=== PATIENT | female | born 1960 | race Caucasian/White ===

== ENCOUNTER → 2016-12-27 | Outpatient (CLI) | payer OTHER ==
[2016-12-27 18:08] LABS: ANION GAP 7 MEQ/L (8-16); BLOOD UREA NITROGEN 23 MG/DL (7-18); CALCIUM LEVEL 8.7 MG/DL (8.5-10.1); CARBON DIOXIDE LEVEL 34 MEQ/L (21-32); CHLORIDE LEVEL 103 MEQ/L (98-107); CREATININE FOR GFR 0.91 MG/DL (0.55-1.02); GLOMERULAR FILTRATION RATE > 60.0 (>51); GLUCOSE, FASTING 80 MG/DL (70-105); SODIUM LEVEL 144 MEQ/L (136-145)
== END ==
LOC: M SMT 15:07
PROVIDERS: ATTEND Internal Medicine Cardiovascular Disease
DX: R00.2 Palpitations (principal); R42 Dizziness and giddiness; R07.9 Chest pain, unspecified

== ENCOUNTER → 2017-04-04 | Outpatient (REF) | payer OTHER | LOC: M LAB REF 17:10 | PROVIDERS: ATTEND Internal Medicine | DX: M15.9 Polyosteoarthritis, unspecified (principal) ==

== ENCOUNTER → 2017-05-16 | Outpatient (CLI) | payer OTHER ==
[~2017-05-16] MED LIST: ASPI81TA85 PO; ATOR40TA75 PO; CALC600T60 PO; CLOP75TA2 PO; KETO10TAB PO; LEVO50TA5 PO; LEXA1TAB PO; LOSA100T5 PO; METO37.5 PO; OMEP40CA2 PO; VITA200015 PO
--- NOTE | 2017-05-21 08:43 | SLEEPCENT ---
DATE OF PROCEDURE: 05/16/2017 REQUESTING PROVIDER: Ashley Neves NP INTERPRETATION: Nocturnal polysomnography was performed for evaluation of sleep apnea syndrome symptoms in this patient with a history of impaired cognition, excessive somnolence, snoring, and nonrestorative sleep. 8 hours and 39 minutes of data were reviewed. There were 407 minutes of sleep identified. Sleep latency was prolonged at 57 minutes. Rapid eye movement (REM) latency was prolonged at 294 minutes. Sleep architecture showed poor progression. There were eventually two REM periods appreciated. Overall sleep efficiency was 79%. The patient's electrocardiogram (EKG) showed a sinus rhythm with an average heart rate of 62 beats per minute. Electroencephalogram (EEG) showed normal waveforms for awake and sleep. There were 203 respiratory events identified of 10 seconds in duration or greater for an apnea-hypopnea index of 29.9. The events were primarily obstructive though central events were seen as well. Events were not exclusive to sleep stage, nor body posture. Arousals from respiratory events occurred 11.9 times per hour. Oxygen desaturations were seen into the low 80s. There was also some limb activity. Limb movement arousal index was borderline at 5.4. IMPRESSION: Severe obstructive sleep apnea syndrome (G47.33). Apnea-hypopnea index of 29.9. RECOMMENDATIONS: The patient should be encouraged to return to the sleep disorder center for pressure therapy. In the interim, alcohol and sedative avoidance should be practiced and caution exercised during the operation of motor vehicles.
== END ==
LOC: M SLEEP 19:49
PROVIDERS: ATTEND Nurse Practitioner Adult Health
DX: G47.33 Obstructive sleep apnea (adult) (pediatric) (principal)

== ENCOUNTER → 2017-06-10 | Outpatient (CLI) | payer OTHER ==
--- NOTE | 2017-06-16 08:25 | SLEEPCENT ---
DATE OF PROCEDURE: 06/10/2017 REFERRING PROVIDER: Dr. Alaina Johnson. INTERPRETATION: Nocturnal polysomnography was performed for the titration of pressure therapy in this patient with obstructive sleep apnea syndrome. Apnea/hypopnea index of 29. For testing the patient was fit with a ResMed Air Touch F20 full-face mask of medium size, 4 cm of water pressure were applied to the circuit and the lights were extinguished. 6 hours and 41 minutes of data were reviewed. There were 304 minutes of sleep identified. Sleep latency was prolonged at 33 minutes. REM latency was prolonged to 198 minutes. Sleep architecture improved substantially with optimum pressure therapy. There is evidence of REM rebound late in the study. Overall sleep efficiency was 76.9%. The patient's EKG showed a sinus rhythm with an average heart rate of 58 beats per minute. EEG showed normal waveforms for awake and sleep stages. Respiratory events were fully palliated with CPAP to a pressure of +13. CPAP tolerance was good. The remaining measures of sleep physiology were essentially normal, though some limb activity was seen, arousals occurred 8.9 times per hour on this titration. . IMPRESSION: Obstructive sleep apnea syndrome (G47.33). RECOMMENDATION: Nightly use of pressure therapy at 13 cm of water.
== END ==
LOC: M SLEEP 19:41
PROVIDERS: ATTEND Nurse Practitioner Adult Health
DX: G47.33 Obstructive sleep apnea (adult) (pediatric) (principal)

== ENCOUNTER 2017-06-14 19:55 | Emergency (ER) | payer OTHER ==
[~2017-06-14] VITALS: Ht 170.2 cm; Wt 113.6 kg
[2017-06-14] MEDS ORDERED: ATOR40TA75 PO (20:18)
[2017-06-14] MEDS ORDERED: LEXA1TAB PO (20:18)
[2017-06-14] MEDS ORDERED: VITA200015 PO (20:18)
[2017-06-14] MEDS ORDERED: CLOP75TA2 PO (20:18)
[2017-06-14] MEDS ORDERED: LEVO50TA5 PO (20:18)
[2017-06-14] MEDS ORDERED: CALC600T60 PO (20:18)
[2017-06-14] MEDS ORDERED: OMEP40CA2 PO (20:18)
[2017-06-14] MEDS ORDERED: LOSA100T5 PO (20:18)
[2017-06-14] MEDS ORDERED: ASPI81TA85 PO (20:18)
[2017-06-14] MEDS ORDERED: METO37.5 PO (20:18)
[2017-06-14 23:03] LABS: ABG BASE EXCESS 0.8 (-2.0-2.0); ABG HCO3 24.4 MEQ/L (22.0-26.0); ABG PARTIAL PRESSURE CO2 35.9 mmHg (35.0-45.0); ABG PARTIAL PRESSURE O2 102.5 mmHg (75.0-100.0); ABG STANDARD HCO3 25.2 MEQ/L (22.0-26.0); ABG TOTAL CO2 25.5 MEQ/L (22.0-29.0); ABG pH (ARTERIAL) 7.451 UNITS (7.350-7.450)
[2017-06-14] MEDS ORDERED: KETOROLAC 30 MG/ML VIAL (J1885) IV ONE (23:15)
[2017-06-15 00:19] LABS: BASO % 0.7 % (0.0-1.0); EOS # 0.1 K/mm3 (0.0-0.50); EOS % 1.9 % (0.0-3.0); LARGE UNSTAINED CELL # 0.1 K/mm3 (0.0-0.4); LARGE UNSTAINED CELL % 2.4 % (0.0-4.0); LYMPH # 2.4 K/mm3 (1.5-4.5); LYMPH % 39.6 % (24.0-44.0); MEAN CORPUSCULAR HGB CONC 33.4 g/dl (32.0-36.5); MEAN CORPUSCULAR VOLUME 92.8 fl (80.0-96.0); MONO # 0.4 K/mm3 (0.0-0.8); MONO % 6.2 % (0.0-5.0); NEUTROPHILS % 49.2 % (36.0-66.0); PLATELET COUNT, AUTOMATED 212 k/mm3 (150-450); RED CELL DISTRIBUTION WIDTH 12.3 % (11.5-14.5)
[2017-06-15 01:07] LABS: ALBUMIN 3.7 GM/DL (3.2-5.2); ALBUMIN/GLOBULIN RATIO 1.28 (1.00-1.93); ALKALINE PHOSPHATASE 116 U/L (45-117); ALT/SGPT 23 U/L (12-78); AMYLASE 53 U/L (25-115); ANION GAP 8 MEQ/L (8-16); AST/SGOT 17 U/L (15-37); BILIRUBIN,DIRECT < 0.1 MG/DL (0.0-0.2); BILIRUBIN,TOTAL 0.2 MG/DL (0.2-1.0); BLOOD UREA NITROGEN 17 MG/DL (7-18); CALCIUM LEVEL 8.7 MG/DL (8.5-10.1); CARBON DIOXIDE LEVEL 30 MEQ/L (21-32); CHLORIDE LEVEL 105 MEQ/L (98-107); CREATININE FOR GFR 0.99 MG/DL (0.55-1.02); GLOMERULAR FILTRATION RATE > 60.0 (>51); GLUCOSE, FASTING 120 MG/DL (70-105); POTASSIUM SERUM 3.6 MEQ/L (3.5-5.1); SODIUM LEVEL 143 MEQ/L (136-145); TOTAL PROTEIN 6.6 GM/DL (6.4-8.2)
[2017-06-15] MEDS ORDERED: ISOVUE-370 76% 100ML VIAL (Q9967) As Ordered ONE (01:26)
--- NOTE | 2017-06-15 02:20 | REPUSA ---
CLINICAL HISTORY: Dyspnea, exclude PE. TECHNIQUE: Multiple incremental axial, coronal and oblique images are obtained from the thoracic inle t to the upper abdomen. Intravenous contrast material was administered as per pulmonary embolism prot ocol. COMMENTS: Comparison to the prior exam on 07/28/2016. Unchanged cardiomegaly. Unchanged basilar atelectatic pulmonary changes. There is excellent opacification of pulmonary arterial system without evidence for pulmonary embolism . Aorta is of normal caliber without evidence for dissection or aneurysm. There is no evidence of pleural or parenchymal mass. There are no pleural effusions. There is no evid ence of hilar or mediastinal lymphadenopathy. Images of the upper abdomen demonstrate no evidence of adrenal mass. The bony structures are free of lytic or blastic lesions. IMPRESSION: No evidence for pulmonary embolism. Unchanged cardiomegaly. Unchanged basilar atelectatic pulmonary changes. Thank you for your kind referral of this patient.
[2017-06-15] MEDS ORDERED: KETO10TAB PO (02:34)
[2017-06-15 03:08] VITALS: BP 156/78
--- NOTE | 2017-06-15 08:50 | REP ---
Clinical: Rib and pleuritic chest pain . Comparison: 07/27/2016 . Technique: PA and lateral. Findings: The mediastinum and cardiac silhouette are normal. The lung martin are clear and without acute consolidation, effusion, or pneumothorax. The skeletal structures are intact and normal. Impression: 1. No acute cardiopulmonary process. Signed by Yosef Mccarthy MD 06/15/2017 08:42 A
== END 2017-06-15 03:09 | disposition home or self-care (01) ==
LOC: M ED 19:55
DX: R07.81 Pleurodynia (principal); I25.10 Atherosclerotic heart disease of native coronary artery without angina pectoris; I10 Essential (primary) hypertension; E78.5 Hyperlipidemia, unspecified; K21.9 Gastro-esophageal reflux disease without esophagitis; E03.9 Hypothyroidism, unspecified; Z95.5 Presence of coronary angioplasty implant and graft; Z87.891 Personal history of nicotine dependence; Z79.82 Long term (current) use of aspirin; Z79.899 Other long term (current) drug therapy
CPT/HCPCS: 36600; 71020; 71275; 80048; 80076; 82150; 82550; 82553; 82803; 83690; 85025; 96374; 99283; J1885; Q9967

== ENCOUNTER → 2017-12-09 | Outpatient (REF) | payer OTHER ==
[2017-12-09 12:45] LABS: CPK CREATINE PHOSPHOKINASE 163 U/L (26-192); MB/CK RELATIVE INDEX 0.61 (< OR =4); TROPONIN I < 0.02 NG/ML (< 0.10)
== END ==
LOC: M LAB REF 11:48
DX: R07.89 Other chest pain (principal)
CPT/HCPCS: 82550

== ENCOUNTER 2018-02-23 14:14 | Emergency (ER) | payer OTHER ==
[2018-02-23] MEDS: NS 1,000 ML IV (15:53)
[2018-02-23] MEDS: ASPIRIN 81 MG CHEW TABLET PO (15:53)
[2018-02-23 15:54] LABS: BASO % 0.6 % (0.0-1.0); EOS # 0.1 10^3/uL (0.0-0.50); EOS % 2.1 % (0.0-3.0); HEMATOCRIT 39.3 % (36.0-47.0); HEMOGLOBIN 12.9 g/dl (12.0-15.5); IMMATURE GRANULOCYTE % 0.6 % (0-3.0); LYMPH # 2.8 10^3/uL (1.5-4.5); LYMPH % 41.4 % (24.0-44.0); MEAN CORPUSCULAR HEMOGLOBIN 30.1 pg (27.0-33.0); MEAN CORPUSCULAR HGB CONC 32.8 g/dl (32.0-36.5); MEAN CORPUSCULAR VOLUME 91.8 fl (80.0-96.0); MONO # 0.5 10^3/uL (0.0-0.8); MONO % 7.8 % (0.0-5.0); NEUTROPHILS # 3.2 10^3/uL (1.8-7.7); NEUTROPHILS % 47.5 % (36.0-66.0); PLATELET COUNT, AUTOMATED 219 10^3/uL (150-450); RED BLOOD COUNT 4.28 10^6/uL (4.00-5.40); RED CELL DISTRIBUTION WIDTH 12.6 % (11.5-14.5); WHITE BLOOD COUNT 6.6 10^3/uL (4.0-10.0)
[2018-02-23 15:56] LABS: PROTHROMBIN TIME 12.2 SECONDS (12.4-14.5)
[2018-02-23 16:09] LABS: ALBUMIN/GLOBULIN RATIO 1.25 (1.00-1.93); ALKALINE PHOSPHATASE 114 U/L (45-117); ALT/SGPT 39 U/L (12-78); ANION GAP 5 MEQ/L (8-16); AST/SGOT 27 U/L (7-37); BILIRUBIN,DIRECT 0.2 MG/DL (0.0-0.2); BILIRUBIN,TOTAL 0.5 MG/DL (0.2-1.0); BLOOD UREA NITROGEN 11 MG/DL (7-18); CARBON DIOXIDE LEVEL 32 MEQ/L (21-32); CHLORIDE LEVEL 106 MEQ/L (98-107); CK-MB VALUE MASS 1.5 NG/ML (<3.6); CPK CREATINE PHOSPHOKINASE 196 U/L (26-192); CREATININE FOR GFR 0.84 MG/DL (0.55-1.30); GLOMERULAR FILTRATION RATE > 60.0 (>51); GLUCOSE, FASTING 104 MG/DL (70-100); MB/CK RELATIVE INDEX 0.76 (< OR =4); NT-PRO BNP 144 PG/ML (<125); POTASSIUM SERUM 3.6 MEQ/L (3.5-5.1); SODIUM LEVEL 143 MEQ/L (136-145); TOTAL PROTEIN 7.2 GM/DL (6.4-8.2); TROPONIN I < 0.02 NG/ML (< 0.10)
== END 2018-02-23 16:53 | disposition home or self-care (01) ==
LOC: M ED 14:14
DX: I20.8 Other forms of angina pectoris (principal); E78.5 Hyperlipidemia, unspecified; K21.9 Gastro-esophageal reflux disease without esophagitis; Z79.899 Other long term (current) drug therapy; Z79.82 Long term (current) use of aspirin
CPT/HCPCS: 71045

== ENCOUNTER 2019-06-11 12:46 | Outpatient (RCR) | payer OTHER ==
[~2019-06-11 12:46] MED LIST changes: +ISOS60TA2 PO
== END 2019-06-12 ==
LOC: M PT 12:46
PROVIDERS: ATTEND Orthopaedic Surgery
DX: Z47.89 Encounter for other orthopedic aftercare (principal); M54.5 Low back pain

== ENCOUNTER 2019-06-30 07:49 | Outpatient (RCR) | payer OTHER ==
[2019-07-02] MEDS ORDERED: COLC1TAB14 PO (13:45)
[2019-07-02] MEDS ORDERED: NITR0.4S14 SL (13:45)
[2019-07-02] MEDS ORDERED: FURO20TA2 PO (13:45)
[2019-07-02] MEDS ORDERED: B COTAB3 PO (13:45)
== END 2019-07-12 ==
LOC: M PT 07:49
PROVIDERS: ATTEND Orthopaedic Surgery
DX: Z47.89 Encounter for other orthopedic aftercare (principal); M54.5 Low back pain

== ENCOUNTER 2019-07-16 07:41 | Day surgery (SDC) | payer OTHER ==
[~2019-07-16] VITALS: Ht 165.1 cm; Wt 116.1 kg
[~2019-07-16 07:41] MED LIST changes: +B COTAB3 PO; +COLC1TAB14 PO; +FURO20TA2 PO; +KETOROLAC 60 MG/2 ML VIAL (J1885) As Ordered ONE; +LIDOCAINE 1% MDV 20ML VIAL SQ PRN; +LIDOCAINE 2% INJ 100 MG/5 ML SDV (FOR ANES.) As Ordered ONE; +LR 1,000 ML IV ONE; +NITR0.4S14 SL; +ONDANSETRON 4MG/2ML VIAL (J2405) As Ordered ONE; +PROPOFOL 200 MG/20 ML VIAL As Ordered ONE; +ceFAZolin SOD 2 GM in IV 1 EA IV ONE; +dexameTHASONE 4 MG/ML 1ML VIAL (J1100) As Ordered ONE
[2019-07-16] MEDS ORDERED: PROPOFOL 200 MG/20 ML VIAL As Ordered ONE (07:49)
[2019-07-16] MEDS ORDERED: MIDAZOLAM INJ 2 MG/2 ML VIAL (J2250) As Ordered ONE (07:57)
[2019-07-16] MEDS ORDERED: fentaNYL 100 MCG/2 ML INJECTION (J3010) As Ordered ONE (07:58)
[2019-07-16] MEDS ORDERED: ROPIvacaine 0.5% 30 ML INJECTION (J2795 PER 1MG) As Ordered ONE (08:28)
[2019-07-16] MEDS ORDERED: LIDOCAINE 2% MDV 20 ML VIAL As Ordered ONE (08:28)
[2019-07-16] MEDS ORDERED: BUPIVACAINE HCL 0.5% 30 ML VIAL As Ordered ONE (08:28)
[2019-07-16] MEDS ORDERED: BACITRACIN PWD 50,000 UNITS VIAL As Ordered ONE (08:28)
[2019-07-16] MEDS ORDERED: NEOSPORIN GU IRRIG 20 ML VIAL As Ordered ONE (08:28)
[2019-07-16] MEDS ORDERED: dexameTHASONE 4 MG/ML 1ML VIAL (J1100) As Ordered ONE ×2 (08:28→09:59)
[2019-07-16] MEDS ORDERED: ePHEDrine SULFATE 25 MG/5 ML(5MG/ML) SYRINGE As Ordered ONE (09:42)
[2019-07-16 11:10] VITALS: BP 157/72
--- NOTE | 2019-07-16 11:31 | RO ---
DATE OF PROCEDURE: 07/16/2019 PREPROCEDURE DIAGNOSIS: Neuroma third intermetatarsal space right foot. POSTPROCEDURE DIAGNOSIS: Neuroma third intermetatarsal space right foot. PROCEDURE: Excision of neuroma third intermetatarsal space right foot. SURGEON: Roverto Mast DPM HOD CARRIER: None ANESTHESIA: Local, monitored anesthesia care (MAC). IRRIGATION: Dilute bacitracin, neomycin and polymyxin B solution. HEMOSTASIS: Ankle pneumatic tourniquet at 200 mmHg for 21 minutes. DESCRIPTION OF PROCEDURE: On 07/16/2019, this 58-year-old white female was taken from her hospital room to the operating room and placed on the operating room table in a supine position. Following the induction of IV sedation, local and regional anesthesia, the right lower extremity was prepped and draped in the usual aseptic manner. The ankle pneumatic tourniquet was rapidly inflated. The right lower extremity was returned to the operating room table and the following procedure was performed. EXCISION OF NEUROMA THIRD INTERMETATARSAL SPACE RIGHT FOOT: Attention was directed to the patients right foot where there was noted to be a positive Zackery's sign in the intermetatarsal space of the right foot. At this time, a 4 cm incision was placed over the third intermetatarsal space ending at the toe sulcus between the third and fourth toes. The incision was deepened through subcutaneous tissues and all coursing venous tributaries were identified, underscored, clamped, cut, ligated, and electrocoagulated as necessary. Dissection was carried down in the same plane and all vital neurovascular structures were retracted medially and laterally and dissection was carried down to the level of the deep transverse intermetatarsal ligament which was transected. Plantar pressure then exposed a moderate sized neuroma which was then traced distally into its common digital branches and transected and then traced in a proximal direction to proximal to the distal one third of the neck of the fourth metatarsal where it was transected and extirpated from the wound. The wound was flushed with copious amounts of dilute bacitracin, neomycin and polymyxin B solution. Attention was directed towards closure where the subcutaneous tissues were coapted and maintained utilizing #4-0 Monocryl in a simple interrupted type fashion. Skin incision was coapted and maintained utilizing #5-0 Monocryl in a continuous subcuticular type fashion. This was additionally reinforced with Steri-Strips. Following the completion of the surgical procedure, 4 mg of dexamethasone sodium phosphate was instilled proximal to the surgical site. Attention was directed towards bandaging where a sterile compressive bandage was applied consisting of Adaptic, 4x4s, 4x4 splints, Rosaura, Kerlix and Coban. The ankle pneumatic tourniquet was rapidly deflated and instantaneous capillary filling time was noted in digits 1-5 of the patients right foot. The patient having apparently tolerated the surgical procedure well was taken from the OR to the recovery room for further monitoring by the anesthesia department. Postoperative instructions will be given upon discharge. AMILCAR
== END 2019-07-16 11:30 | disposition home or self-care (01) ==
LOC: M SDC 07:41
PROVIDERS: ATTEND Podiatrist
DX: G57.61 Lesion of plantar nerve, right lower limb (principal); I10 Essential (primary) hypertension; E78.5 Hyperlipidemia, unspecified; E03.9 Hypothyroidism, unspecified; K21.9 Gastro-esophageal reflux disease without esophagitis; Z79.02 Long term (current) use of antithrombotics/antiplatelets; Z98.61 Coronary angioplasty status; Z79.82 Long term (current) use of aspirin; G47.30 Sleep apnea, unspecified; Z79.899 Other long term (current) drug therapy
CPT/HCPCS: 28080; 88304; 97116; J0690; J1100; J1885; J2250; J2405; J3010

== ENCOUNTER → 2021-11-05 | Outpatient (REF) | payer OTHER ==
[~2021-11-05] MED LIST changes: -ASPI81TA85 PO; +ASPI81TA86 PO; +ISOS1TAB36 PO; -ISOS60TA2 PO; -KETOROLAC 60 MG/2 ML VIAL (J1885) As Ordered ONE; -LIDOCAINE 1% MDV 20ML VIAL SQ PRN; -LIDOCAINE 2% INJ 100 MG/5 ML SDV (FOR ANES.) As Ordered ONE; -LR 1,000 ML IV ONE; -OMEP40CA2 PO; +OMEP40CA4 PO; -ONDANSETRON 4MG/2ML VIAL (J2405) As Ordered ONE; -PROPOFOL 200 MG/20 ML VIAL As Ordered ONE; -ceFAZolin SOD 2 GM in IV 1 EA IV ONE; -dexameTHASONE 4 MG/ML 1ML VIAL (J1100) As Ordered ONE
[2021-11-05 14:49] LABS: MALB URINE SIEMENS 11.7 MG/L; MAU/CREAT RATIO 3.8 MCG/MG (0.0-30.0)
== END ==
LOC: M LAB REF 12:19
PROVIDERS: ATTEND Internal Medicine
DX: E11.65 Type 2 diabetes mellitus with hyperglycemia (principal)

== ENCOUNTER → 2022-05-31 | Outpatient (CLI) | payer OTHER | LOC: M WHC 07:26 | PROVIDERS: ATTEND Advanced Practice Midwife | DX: Z12.31 Encounter for screening mammogram for malignant neoplasm of breast (principal); Z13.820 Encounter for screening for osteoporosis; M85.89 Other specified disorders of bone density and structure, multiple sites ==

== ENCOUNTER → 2022-07-11 | Outpatient (REF) | payer OTHER ==
[2022-07-11 13:35] LABS: C REACTIVE PROTEIN QUANTITATIV < 0.30 MG/DL (0.00-0.30); RHEUMATOID FACTOR QUANT < 10.0 IU/ML (<15.0)
[2022-07-13 00:11] LABS: ANTINUCLEAR ANTIBODIES DIRECT Negative (Negative); CYCLIC CITRULLINATED PEPTIDE < 1 units (0-19)
== END ==
LOC: M LAB REF 12:12
PROVIDERS: ATTEND Internal Medicine
DX: M15.9 Polyosteoarthritis, unspecified (principal)

== ENCOUNTER → 2023-06-02 | Outpatient (CLI) | payer OTHER | LOC: M WHC 08:03 | PROVIDERS: ATTEND Obstetrics & Gynecology | DX: Z12.31 Encounter for screening mammogram for malignant neoplasm of breast (principal) ==

== ENCOUNTER → 2023-10-10 | Outpatient (CLI) | payer OTHER | LOC: M SLEEP HO 10:28 | PROVIDERS: ATTEND Internal Medicine Pulmonary Disease | DX: G47.33 Obstructive sleep apnea (adult) (pediatric) (principal) ==

== ENCOUNTER → 2024-03-22 | Outpatient (REF) | payer OTHER ==
[2024-03-22 14:38] LABS: C REACTIVE PROTEIN QUANTITATIV < 0.40 MG/DL (<1.0)
[2024-03-22 14:39] LABS: RHEUMATOID FACTOR QUANT < 3.5 IU/ML (<14)
[2024-03-22 14:42] LABS: URIC ACID 3.1 MG/DL (3.1-7.8)
[2024-03-23 16:08] LABS: ANA SCREEN, IFA NEGATIVE (NEGATIVE)
== END ==
LOC: M LAB REF 12:28
PROVIDERS: ATTEND Internal Medicine
DX: M79.643 Pain in unspecified hand (principal)

== ENCOUNTER → 2024-05-25 | Outpatient (CLI) | payer OTHER | LOC: M WUC 08:45 | PROVIDERS: ATTEND Physician Assistant | DX: S20.212A Contusion of left front wall of thorax, initial encounter (principal); X58.XXXA Exposure to other specified factors, initial encounter; Y92.9 Unspecified place or not applicable ==

== ENCOUNTER → 2024-06-18 | Outpatient (CLI) | payer OTHER | LOC: M WHC 08:19 | PROVIDERS: ATTEND Obstetrics & Gynecology | DX: Z12.31 Encounter for screening mammogram for malignant neoplasm of breast (principal); Z13.820 Encounter for screening for osteoporosis; M85.89 Other specified disorders of bone density and structure, multiple sites; R92.313 Mammographic fatty tissue density, bilateral breasts ==

== ENCOUNTER → 2025-06-09 | Outpatient (REF) | payer MEDICARE, OTHER | LOC: M LAB REF 17:21 | PROVIDERS: ATTEND Internal Medicine | DX: R11.0 Nausea (principal); R19.4 Change in bowel habit ==

== ENCOUNTER → 2025-06-28 | Outpatient (CLI) | payer MEDICARE | LOC: M WHC 07:39 | PROVIDERS: ATTEND Obstetrics & Gynecology | DX: Z12.31 Encounter for screening mammogram for malignant neoplasm of breast (principal); R92.313 Mammographic fatty tissue density, bilateral breasts ==